=== PATIENT | male | born 1975 | race Caucasian/White ===

== ENCOUNTER 2024-03-31 20:38 | Emergency (ER) | payer OTHER ==
[~2024-03-31] VITALS: Ht 185.4 cm; Wt 83.9 kg
[2024-03-31 20:46] VITALS: O2SAT 97
[2024-03-31] MEDS ORDERED: AMOX-430 PO (21:00)
[2024-03-31 21:07] VITALS: BP_DIAS 85
== END 2024-03-31 21:07 | disposition home or self-care (01) ==
LOC: ER 20:44
DX: H66.92 Otitis media, unspecified, left ear (principal); J02.9 Acute pharyngitis, unspecified; Z79.899 Other long term (current) drug therapy
CPT/HCPCS: A4606; A4663

== ENCOUNTER 2024-04-20 09:22 | Emergency (ER) | payer OTHER ==
[~2024-04-20] VITALS: Ht 185.4 cm; Wt 84.4 kg
[~2024-04-20 09:22] MED LIST: AMOX-430 PO
[2024-04-20] MEDS ORDERED: NEOM10DR11 LEFT EAR (10:08)
[2024-04-20] MEDS ORDERED: CLIN300C12 PO (10:08)
[2024-04-20 10:23] VITALS: BP 130/78; O2SAT 97
== END 2024-04-20 10:26 | disposition home or self-care (01) ==
LOC: ER 09:22
DX: H60.399 Other infective otitis externa, unspecified ear (principal); M27.2 Inflammatory conditions of jaws; F17.210 Nicotine dependence, cigarettes, uncomplicated; Z79.899 Other long term (current) drug therapy
CPT/HCPCS: A4606; A4663